=== PATIENT | male | born 1945 | race Two or more races ===

== ENCOUNTER 2025-01-13 08:31 | Emergency (ER) | payer OTHER, SELFPAY ==
[2025-01-13 08:32] VITALS: PULSE 84; RESP 20; O2SAT 98; BMI 35.9
--- NOTE | 2025-01-13 08:34 | EKG_ITS ---
[facility] Test Date: 2025-01-13 Pat Name: PARTH GREEN Department: Room: - Gender: Male Tomographic Tech: : 1945 Requested By: Cuauhtemoc Ybarra Order Number: [id number] Reading MD: Cuauhtemoc Ybarra Measurements Intervals [place] Rate: 78 P: 50 [place]: 202 QRS: 31 QRSD: 103 T: 51 QT: 409 QTc: 468 Interpretive Statements SINUS RHYTHM No previous ECG available for comparison /store/S0/[id number]/ecg/[id number].pdf
--- NOTE | 2025-01-13 08:37 | XR_ITS ---
Examination: AP chest single view TECHNIQUE: AP portable upright chest single view Date and time: January 13, 2025 0908 hours INDICATIONS: Seizure activity today. FINDINGS: Mild opacity left base No significant cardiac enlargement Mild vascular congestion. Prominent osteopenia. Old right-sided rib fractures IMPRESSION: Mild opacity left base, consider pneumonia including mild aspiration pneumonia, clinical correlation advised
--- NOTE | 2025-01-13 08:38 | XR_ITS ---
Examination: CT brain head without contrast. 2-D sagittal coronal reconstructions Date and time of exam:January 13, 2025 0853 hours INDICATIONS: Onset seizures today CTDI: vol (mGy):53.7 DLP: (mGycm):1181 Technique: Multiple CT axial sections of the brain have been obtained, 5 mm slice thickness. Contrast has not been administered. 2-D sagittal, coronal reconstructions have been obtained Low dose protocols were performed. One or more of the following dose reduction techniques were used; automated exposure control, adjustment of the mA and/or KV according to patient size, use of iterative reconstruction technique. Findings: No significant ventricular enlargement. Intra-axial or extra-axial hemorrhage density is not seen. No mass effect or midline shift Basal cisterns are not remarkable. Fourth ventricle is midline. Cranial vault intact. Impression: Negative for acute hemorrhage, mass effect or midline shift Consider elective brain MRI follow-up pre and postcontrast, seizure protocol
--- NOTE | 2025-01-13 08:40 | EDNOTE_ITS ---
<Statement entered by Janny Cox MD - 02/02/25 06:56> I, Janny Cox MD, have reviewed the history, exam, and assessment of the patient. I have evaluated the patient independently and agree with the plan of care documented by [ ]. All diagnostic studies were reviewed and discussed. I confirm the diagnosis as documented by the Resident. I was present during the Medical Decision Making for this patient. The patient's plan of care was created between myself and the Resident and consistent with our discussion of the patient's case. ED Seizures RME/HPI General Chief Complaint: Seizure Stated Complaint: SEIZURE Time Seen by Provider: 01/13/25 08:40 Source: patient and EMS Arrival date/time: 01/13/25 08:31 Mode of arrival: EMS RME / HPI RME / HPI Narrative: Mr. Ansari is a 79-year-old male with past medical history of hypertension and glaucoma who presented to [facility] emergency department with a chief complaint of seizure episode. History provided by EMS patient is alert and oriented x 2 seems to be postictal and is not able to provide detailed information. Per EMS patient was seen by a bystander to have a seizure episode lasting 1-2 mins earlier this morning. Blood glucose checked by EMS 182, was started on supplemental oxygen and was hypertensive around 170/90 for EMS. Patient is alert and oriented x 2, afebrile, reports that he does not recall if he had a seizure and was driving to [facility] from [place] for fishing when he stopped at the gas station and reportedly had a seizure. Reports only past medical history of hypertension and glaucoma denies any cardiac renal or pulmonary chronic issues. He denies any fall, chest pain or pain overall. No oral trauma or incontinence noted. 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: No Related Data Allergies Allergy/AdvReac Type Severity Reaction Status Date / Time No Known Allergies Allergy Verified 01/13/25 08:37 Review of Systems Review of Systems ROS Unobtainable: unobtainable due to mental status Past Medical History Past Medical History Comments PMH COMMENT: PMH: Positive for Hypertension PSHx: Denies Allergies: NKDFA Social history: Lives alone in [place], no family support -Smoking: Daily smoker -Alcohol Use: Occasional -Illicit Drug Use: Denies Family History: No FH of seizures ED Exam Narrative Physical exam: Physical Exam General: Awake and in no acute distress, tired and lethargic. Conversational and non-toxic appearing. HEENT: Normocephalic, atraumatic, mucous membranes moist. Heart: Regular rate and rhythm, no murmurs. Lungs: Clear to auscultation with no wheezing or crackles. Abdomen: Soft, Obese, nondistended, nontender, positive bowel sounds. ?No guarding or rebound tenderness. Neurologic: Alert and oriented x3, no gross neurological deficit, and patient able to move all 4 extremities. Extremities: No edema. Skin: Varicose veins noted Course Course Course Narrative: 79-year-old male with past medical history of hypertension and glaucoma seen in the ED for seizure episode. Patient had a witnessed seizure episode by bystander, was transported to ER by EMS no medications given during transport episode self resolved Workup Fingerstick blood glucose 192 EKG shows sinus rhythm rate 78 Workup CBC hemoglobin 13.2 white count and platelet count within normal limits Coags INR 1.0, PT PTT normal VBG pH 7.4 Chemistry sodium 141, potassium 3.9, chloride 105, bicarb 25.3, anion gap 11, BUN 16, creatinine 1.0, GFR greater than 60, lactic acid elevated at 3.0, phosphorus 2.2 magnesium 2.0, liver function tests within normal limits, CK normal, Pro-Hawk normal Urine analysis shows 1+ protein, 1+ glucose, trace ketones trace blood negative for bacteria RBC 3 WBC 3 and urine toxicology screen was negative Blood alcohol level negative CT scan of head negative for any hemorrhage Chest x-ray negative for aspiration pneumonia, minimal opacity noted on the left side clinically low suspicion of pneumonia Patient observed in the ER, no seizure-like activity noted patient did have pos sibly postictal confusion however mentation stable. Patient was provided lunch, discussed with licensed clinical social worker patient advised not to drive patient [place] Quality Measures none Orders Category Date Time Status Home Service Advisor Q4H START 00 Care 01/13/25 08:35 Completed Continuous Pulse Oximetry NOW Care 01/13/25 08:35 Completed EKG (ED ONLY) *Do not use* NOW Care 01/13/25 08:35 Completed Fingerstick [Bedside Blood Glucose] NOW Care 01/13/25 08:35 Completed Insert IV NOW Care 01/13/25 08:35 Completed Seizure precautions NOW Care 01/13/25 08:35 Completed Diet Cardiac Diet 01/13/[address] head/brain wo con Stat Exams 01/13/25 08:38 Completed CXRP [XR chest 1V portable] Stat Exams 01/13/25 08:37 Completed EKG (ED Only) Stat Exams 01/13/25 08:34 Draft Alcohol, Blood Medical Stat Lab 01/13/25 09:30 Completed CBC Stat Lab 01/13/25 09:30 Completed CK [Creatine Kinase] Stat Lab 01/13/25 09:30 Completed CMP [Comprehensive Metabolic Panel] Stat Lab 01/13/25 09:30 Completed Drug Screen,Urine Stat Lab 01/13/25 11:20 Completed INR [Prothrombin Time with INR] Stat Lab 01/13/25 09:30 Completed Lactate (Lactic Acid) Stat Lab 01/13/25 09:30 Completed Mag [Magnesium] Stat Lab 01/13/25 09:30 Completed PTT [Partial Thromboplastin Time] Stat Lab 01/13/25 09:30 Completed Phosphorous Stat Lab 01/13/25 09:30 Completed Procalcitonin Stat Lab 01/13/25 09:30 Completed Urinalysis Stat Lab 01/13/25 11:20 Completed VBG [Venous Blood Gas] Stat Lab 01/13/25 09:30 Completed Sodium Chloride 0.9% 1000 ml [Ns] 1,000 ml Med 01/13/25 09:37 Discontinued IV 999 mls/hr Oxygen Delivery PRN RT 01/13/25 08:35 Completed Referral Victim Advocate NOW 01/13/25 11:23 Completed Vital Signs Vital signs: Vital Signs Temperature 98.7 F 01/13/25 08:48 Pulse Rate 72 01/13/25 08:48 Respiratory Rate 16 01/13/25 08:48 Blood Pressure 178/97 H 01/13/25 08:48 Pulse Oximetry (%) 99 01/13/25 08:48 Oxygen Delivery Method Room Air 01/13/25 08:48 Seizure MDM Narrative MDM Narrative:: #Seizure Episode #Lactic Acidosis, Dehydration 79-year-old male with past medical history of hypertension and glaucoma seen in the ED for seizure episode. No past medical history of seizures Patient had a witnessed seizure episode by bystander, was transported to ER by EMS no medications given during transport episode self resolved Workup showed no hypoglycemia, mild lactic acid elevation at 3.0 can be possibly secondary to seizure, CK normal Pro-Hawk normal otherwise grossly CMP normal mild anemia noted on CBC CT scan of head negative for any bleed, blood alcohol level and urine tox screen negative No obvious reason for provoked seizure Chest x-ray negative for aspiration pneumonia, minimal opacity noted on the left side clinically low suspicion of pneumonia Patioent given 1L NS bolus Patient observed in the ER, no seizure-like activity noted patient did have possibly postictal confusion however mentation stable. Patient was provided lunch, discussed with licensed clinical social worker patient advised not to drive patient [place] Patient stable for discharge, advised to follow up with PCP Case discussed with Attending Physician Dr. Brooke Ybarra MD Internal Medicine PGY-2 Disclaimer: This note was dictated by speech recognition. Minor errors in armored cable machine operator may be present due to voice recognition software. Patient data External records reviewed:: EMS form Clinical information provided by:: patient and EMS Social determinants that could affect healthcare access:: none Patient has the following chronic illnesses:: None How is presenting disease/condition affected by chronic disease/condition?: uneffected by Evaluation data The following diagnostics were reviewed and interpreted by me:: lab results, radiology exam(s) and EKG tracing(s) Lab and/or radiology exams considered but not ordered:: None Interpretation Summary: Fingerstick blood glucose 192 EKG shows sinus rhythm rate 78 Workup CBC hemoglobin 13.2 white count and platelet count within normal limits Coags INR 1.0, PT PTT normal VBG pH 7.4 Chemistry sodium 141, potassium 3.9, chloride 105, bicarb 25.3, anion gap 11, BUN 16, creatinine 1.0, GFR greater than 60, lactic acid elevated at 3.0, phosphorus 2.2 magnesium 2.0, liver function tests within normal limits, CK normal, Pro-Hawk normal Urine analysis shows 1+ protein, 1+ glucose, trace ketones trace blood negative for bacteria RBC 3 WBC 3 and urine toxicology screen was negative Blood alcohol level negative CT scan of head negative for any hemorrhage Medications / Prescriptions Medications or Prescriptions considered but not ordered:: None Medication administrations:: Medication Administration History Discontinued Medications Sodium Chloride (Ns) 1,000 mls @ 999 mls/hr IV .Q1H1M ONE Stop: 01/13/25 10:37 Last Infusion: 01/13/25 11:06 Dose: Infused Documented By: Admin: 01/13/25 09:53 Dose: 999 mls/hr Documented By: SILVINO As Above Consultations Consultation(s) initiated? (list below): No Diagnosis Seizure Differential Diagnosis: generalized seizure, new onset seizure, epileptic seizure and other (Syncope) Most likely diagnosis given after review of the tests above:: Seizure episode Admission Indicated Admission indicated?: not indicated Admission Request Was there a request for admission?: No Disposition Plan Disposition Plan: Discharge Discharge Attestation Discharge Attestation: The patient and all family members were given an opportunity to ask questions and understood the discharge instructions. Discharge instructions specifically effects, indications for sooner follow up or return to the emergency department, and the expected course of current diagnosis. Patient condition: Stable Discharge Plan Plan Patient Disposition: HOME (Self Care) Patient condition on transfer: Stable Health Concerns: You were seen in the Emergency Department today for a seizure. Emergency medical services (EMS) reported that you had a witnessed seizure before arriving at the hospital. In the Emergency Department: * Your lactate level was slightly elevated (3.0), which can happen after a seizure. * You were given 1 liter of IV fluids to help with recovery. * A CT scan of your head showed no signs of bleeding or other urgent problems. What You Should Do Next: * Follow up with your Primary Care Physician (PCP) in [place] as soon as possible. * Your PCP should refer you to a neurologist for further evaluation of your seizure. * Do not drive until you have been cleared by your doctor. Driving after a seizure can be very dangerous. * Continue taking your regular medications for Hypertension and Glaucoma When to Return to the Emergency Department: * If you have another seizure * If you develop new or worsening symptoms (confusion, weakness, trouble speaking, etc.) * If you experience severe headaches or vision changes Prescriptions/Referrals Referrals: No Primary/Family,Physician [Primary Care Provider] - In 1 week Problem List Clinical Impression: New onset seizure Patient/Caregiver Discharge Instructions Discharge Activity: activity as tolerated Education Materials: ED Seizure New Onset Unknown ... Print Language: Nigerien Stand Alone Forms: [facility] Award Info., Patient Portal Info Letter
[2025-01-13 08:48] VITALS: BP 178/97; PULSE 72; RESP 16; TEMP 37.1; O2SAT 99
[2025-01-13 09:43] LABS: Base Excess, Venous -1 (-3-3); O2 Saturation, Venous 85 % (96-97); PCO2, Venous 38 mmHg (36-56); PO2, Venous 46 mmHg (15-58); pH, Venous 7.40 (7.33-7.66)
[2025-01-13 09:44] LABS: Lactate (Lactic Acid) 3.0 mMol/L (0.4-2.0)
[2025-01-13 09:46] LABS: Basophils # (Auto) 0.0 Thou/mm3 (0.0-0.2); Basophils % (Auto) 0 % (0-2.5); Eosinophils # (Auto) 0.1 Thou/mm3 (0.0-0.5); Eosinophils % (Auto) 1 % (0-10); Hematocrit 39.3 % (41.0-53.0); Hemoglobin 13.2 g/dL (13.5-16.0); Immature Granulocytes Auto 0.03 Thou/mm3 (0.00-0.00); Lymphocytes # (Auto) 0.5 Thou/mm3 (1.0-4.8); Lymphocytes % (Auto) 5 % (10-50); Mean Corpuscular HGB Conc 33.6 g/dl (31.0-37.0); Mean Corpuscular Hemoglobin 30.8 pg (25.0-35.0); Mean Corpuscular Volume 92 fL (80-100); Monocytes # (Auto) 0.5 Thou/mm3 (0.0-0.8); Monocytes % (Auto) 6 % (0-12); Neutrophils # (Auto) 8.3 Thou/mm3 (1.8-7.7); Neutrophils % (Auto) 88 % (37-80); Nucleated Red Blood Cell # 0.00 Thou/mm3 (0.00-0.00); Nucleated Red Blood Cell % 0 /100 WBC (0); Platelet Count 254 Thou/mm3 (140-440); RDW Standard Deviation 44.5 fL (35.1-43.9); Red Blood Count 4.28 Miln/mm3 (4.50-5.90); White Blood Count 9.4 Thou/mm3 (3.8-10.6)
[2025-01-13] MEDS: SODIUM CHLORIDE 0.9% 1000 ML 1,000 ML 999 ML IV (09:53)
[2025-01-13 10:07] LABS: INR 1.0 (0.9-1.3); Partial Thromboplastin Time 23.9 Seconds (22.0-36.0); Prothrombin Time 11.1 Seconds (9.0-12.2)
[2025-01-13 10:27] LABS: Alanine Aminotransferase 33 U/L (10-49); Albumin, Serum 4.2 gm/dL (3.4-4.8); Albumin/Globulin Ratio 1.7 (1.2-2.2); Alcohol, Blood Medical < 3.0 mg/dL (0-10.0); Alkaline Phosphatase 52 U/L (46-116); Anion Gap 11 (7-16); Aspartate Amino Transferase 28 U/L (0-34); BUN/Creatinine Ratio 16 Ratio (12-20); Bilirubin,Total 0.5 mg/dL (0.3-1.2); Blood Urea Nitrogen 16 mg/dL (9-23); Calcium 9.6 mg/dL (8.3-10.6); Calcium (Corrected) 9.6 mg/dL (8.5-10.1); Carbon Dioxide 25.3 mMol/L (20.0-31.0); Chloride 105 mMol/L (98-107); Creatine Kinase 149 U/L (34-171); Creatinine (Component) 1.0 mg/dL (0.6-1.3); Estimated Creatinine Clearance 78.0 mL/min (>60); Globulin 2.5 gm/dL (2.3-3.5); Glucose 151 mg/dL (74-106); Magnesium 2.0 mg/dL (1.6-2.6); Osmolality,Calculated 285 (275-295); Phosphorous 2.2 mg/dL (2.4-5.1); Potassium 3.9 mMol/L (3.4-5.1); Procalcitonin 0.16 ng/ml (0.0-0.49); Sodium 141 mMol/L (136-145); Total Protein 6.7 gm/dL (5.7-8.2); eGFR > 60 See Note
[2025-01-13 11:25] LABS: Collection Type, Urine Clean Catch
[2025-01-13 11:26] VITALS: BP 168/86; PULSE 69; RESP 18; TEMP 36.8; O2SAT 96
[2025-01-13 11:35] LABS: Bilirubin,Urine Negative (Negative); Blood,Urine Trace (Negative); Clarity,Urine Clear (Clear/Hazy); Color,Urine Lt-Yellow (Lt Yel-Yel); Glucose, Urine 1+ (Negative); Ketones,Urine Trace (Negative); Leukocyte Esterase,Urine Negative (Negative); Nitrite,Urine Negative (Negative); PH,Urine 5.5 (5.0-7.0); Protein,Urine 1+ (Neg - Trace); RBC,Urine 3 /hpf (0-3); Specific Gravity,Urine 1.018 (1.001-1.035); Squamous Epithelial Cell,Urine < 1 /hpf (0-5); Urobilinogen,Urine Negative mg/dL (0.0-1.0); WBC,Urine 3 /hpf (0-5)
[2025-01-13 11:36] LABS: Sperm,Urine Present
[2025-01-13 11:37] LABS: Amphetamine/Methamp Scrn,U Negative (Negative); Barbiturate Screen,Urine Negative (Negative); Benzodiazepines Screen,Urine Negative (Negative); Benzoylecgonine Screen, Ur Negative (Negative); Fentanyl Screen,Urine Negative (Negative); Opiate Screen,Urine Negative (Negative); THC Screen,Urine Negative (Negative)
[2025-01-13 12:41] LABS: Reflex Lactate? Y
[2025-01-13 12:54] VITALS: BP 163/83; PULSE 79; RESP 16; TEMP 36.7; O2SAT 99
== END 2025-01-13 12:56 | disposition home or self-care (01) ==
PROVIDERS: Emergency Provider Emergency Medicine
DX: R56.9 Unspecified convulsions (principal); E86.0 Dehydration; E87.20 Acidosis, unspecified; I10 Essential (primary) hypertension; R79.89 Other specified abnormal findings of blood chemistry; F17.210 Nicotine dependence, cigarettes, uncomplicated; Z60.2 Problems related to living alone
CPT/HCPCS: 36415; 70450; 71045; 80053; 80307; 80320; 81001; 82550; 82803; 83605; 83735; 84100; 84145; 85025; 85610; 85730; 93005; 96360; 99284; J7030; G0480